=== PATIENT | female | born 1970 | race Caucasian/White ===

== ENCOUNTER 2017-02-03 12:32 | Emergency (ER) | payer OTHER ==
[~2017-02-03] VITALS: Ht 175.3 cm; Wt 86.8 kg
[~2017-02-03 12:32] MED LIST: ADVAIR HFA120 INHALA IH; AMBIEN10 M1 PO; AMBIEN10 MG PO; AMOXICILLIN500 MG PO; ASCORBIC ACID100 MG PO; ASCORBIC ACID500 M3 PO; ASPERDRINK81 MG PO; ASPIR 8181 M1 PO; ASPIRIN81 M2 PO; ATORVASTATIN CA10 MG PO; AUGMENTIN875 MG PO; BACTRIM DS PO; BACTRIM,SEPT1 TABLET PO; BACTROBAN NASAL1 G1 BOTH NARES; BENZTROPINE MESY2 MG PO; BISACODYL SUPP10 MG PR; Bactrim,Septra DS 80 PO; Bactroban Nasal Oint NS; CALCIUM500 M4 PO; CATAPRES0.2 MG PO; CATAPRES0.3 MG PO; CELEXA40 MG PO; CLARITIN10 M3 PO; CLARITIN10 MG PO; CLEOCIN300 MG PO; CLONAZEPAM1 MG PO; CLONIDINE HCL0.2 MG PO; CLONIDINE HCL0.3 MG PO; COGENTIN0.5 MG PO; COGENTIN2 MG PO; CRANBERRY200 MG PO; CRESTOR20 MG PO; CRESTOR40 MG PO; CYANOCOBALAM1000 MCG PO; CYCLOBENZAPRINE10 MG; DESYREL 150 MG150 MG PO; DESYREL100 MG PO; DIAZEPAM5 MG PO; DUONEB 2.5-0.5 M3 ML IH; ENDOCET 5-3251 EACH PO; ERYTHROMYC1 APPLICAT RIGHT EYE; FANAPT8 MG PO; FLEXERIL10 MG PO; GABAPENTIN600 MG PO; HUMALOG100 UNIT/1 SC; HUMALOG100 UNIT/2 SC; IBUPROFEN400 MG PO; INVEGA6 MG PO; KEFLEX500 MG PO; KEPPRA500 MG PO; LANTUS 10100 UNITS/ SC; LANTUS 3 M100 UNITS/ SC; LANTUS 3 M100 UNITS1 SC; LEVEMIR FL100 UNITS/ SC; LEVEMIR100 UNIT/2 SC; LEVOFLOXACIN750 MG PO; LEXAPRO20 MG PO; LISINOPRIL10 MG PO; LOPRESSOR25 MG PO; LOW DOSE ASPIRI81 M1 PO; LYRICA100 MG PO; LYRICA150 MG PO; METHADONE5 MG PO; METHadone HCl PO; MUPIROCIN22 GM TP; MYCOSTATIN 100,60 ML PO; NEURONTIN600 MG PO; NICODERM CQ1 EAC2 TD; NIX 5% CREAM60 GM TP; NOVOLOG 10100 UNITS/ SC; NOVOLOG PE100 UNITS/ SC; NYSTATIN15 GM TP; NovoLOG, HumaLOG SC; OMEPRAZOLE40 M1 PO; OXECTA7.5 MG PO; OXYBUTYNIN CHLOR5 MG PO; OXYCODONE-ACET1 EACH PO; OXYCONTIN15 MG PO; OXYCONTIN20 MG PO; PERCOCET 10/1 TABLET PO; PERCOCET 5/31 TABLET PO; PERCOCET 7.51 TABLET PO; POTASSIUM GLUCO90 MG PO; PREDNISONE10 MG PO; PRINIVIL10 MG PO; PROAIR HFA8.5 GM IH; PROVERA,CYCRIN10 MG PO; Percocet 10/325,Endo PO; RISPERDAL1 MG PO; SAPHRIS10 MG SL; SERTRALINE HCL100 MG PO; SYSTANE BALANCE10 ML BOTH EYES; SYSTANE GEL EYE10 ML BOTH EYES; TOPAMAX25 MG PO; TOPAMAX50 MG PO; TOPIRAMATE50 MG PO; VALIUM5 MG PO; VITAMIN D-32000 UNI1 PO; VITAMIN D1000 INTUN PO; XANAX0.5 MG PO; XANAX1 MG PO; ZOCOR20 MG PO; ZOLOFT100 MG PO; ZYVOX600 MG PO; Zocor PO
[2017-02-03 13:07] LABS: POINT-OF-CARE METER ID UU13113778
[2017-02-03 14:22] LABS: EOSINOPHIL (%) 1.7 % (0-5); EOSINOPHIL COUNT 0.2 K/uL (0-0.3); IMMATURE GRANULOCYTE (%) 0.3 % (0.0-0.7); INSTRUMENT ABS NEUTROPHIL CT 7.2 K/uL; MCHC 33.7 G/DL (30.0-36.0); MEAN PLAT.VOLUME 10.3 uM^3 (9.5-12.4); MONOCYTE (%) 6.2 % (3-12); MONOCYTE COUNT 0.7 K/uL (0-0.8); NEUTROPHIL (%) 64.7 % (45-76); NEUTROPHIL COUNT 7.2 K/uL (1.8-6.4); PLATELET COUNT 167 K/uL (156-360); RBC DIS.WIDTH-CV 12.3 % (11.8-14.6); RBC DIS.WIDTH-SD 38.6 % (39-53)
[2017-02-03 14:33] LABS: CHLORIDE 101 mEq/L (99-109); POTASSIUM 4.5 mEq/L (3.7-5.4); SODIUM 132 mEq/L (136-147)
[2017-02-03 14:36] LABS: ANION GAP 11 MEQ/L (2-14)
[2017-02-03 14:37] LABS: GLUCOSE 426 mg/dL (70-99)
[2017-02-03 14:38] LABS: GFR ESTIMATE (CALCULATED) > 59 mL/min/
[2017-02-03 14:39] LABS: UREA NITROGEN (BUN) 15 mg/dL (9-23)
[2017-02-03 15:46] LABS: POINT-OF-CARE METER ID UU14100415
[2017-02-03 16:43] LABS: POINT-OF-CARE METER ID UU14100415
[2017-02-03 16:58] VITALS: BP 123/79
== END 2017-02-03 16:59 | disposition home or self-care (01) ==
LOC: EME 12:32
PROVIDERS: Emergency Medicine
DX: E11.65 Type 2 diabetes mellitus with hyperglycemia (principal); T38.3X6A Underdosing of insulin and oral hypoglycemic [antidiabetic] drugs, initial encounter; Z91.128 Patient's intentional underdosing of medication regimen for other reason; Z79.4 Long term (current) use of insulin; I10 Essential (primary) hypertension; I25.2 Old myocardial infarction; J44.9 Chronic obstructive pulmonary disease, unspecified; F17.200 Nicotine dependence, unspecified, uncomplicated; Z86.73 Personal history of transient ischemic attack (TIA), and cerebral infarction without residual deficits; Z90.49 Acquired absence of other specified parts of digestive tract
CPT/HCPCS: 80048; 81003; 82948; 85025; 99281; 99285; J1815; J7030

== ENCOUNTER 2017-06-13 20:19 | Inpatient (IN) | payer OTHER ==
[~2017-06-13] VITALS: Ht 175.3 cm; Wt 79.1 kg
[2017-06-13 23:35] LABS: HEMATOCRIT 40.3 % (36.0-46.0); MCH 28.4 PG (29.0-34.0); MCV 83.4 FL (83-99); MEAN PLAT.VOLUME 10.3 uM^3 (9.5-12.4); PLATELET COUNT 227 K/uL (156-360); RBC DIS.WIDTH-CV 12.6 % (11.8-14.6); RBC DIS.WIDTH-SD 38.5 % (39-53); RED BLOOD COUNT 4.83 M/uL (3.80-5.20); WHITE BLOOD COUNT 12.8 K/uL (4.1-10.2)
[2017-06-13 23:46] LABS: CHLORIDE 99 mEq/L (99-109); POTASSIUM 3.7 mEq/L (3.7-5.4); SODIUM 131 mEq/L (136-147)
[2017-06-13 23:50] LABS: TOTAL BILIRUBIN 0.3 mg/dL (0.0-1.0)
[2017-06-13 23:52] LABS: GFR ESTIMATE (CALCULATED) > 59 mL/min/
[2017-06-13 23:53] LABS: UREA NITROGEN (BUN) 10 mg/dL (9-23)
[2017-06-14 00:08] LABS: ANION GAP 10 MEQ/L (2-14)
[2017-06-14 00:10] LABS: ALKALINE PHOSPHATASE 111 IU/L (3-129)
[2017-06-14 00:19] LABS: GLUCOSE 464 mg/dL (70-99)
[2017-06-14 01:06] LABS: ADD MIUA? YES; BILIRUBIN NEGATIVE; BLOOD SMALL; COLOR YELLOW ((YELLOW)); GLUCOSE (STRIP) >=500; KETONES NEGATIVE; LEUKOCYTES LARGE; NITRITE POSITIVE; PROTEIN (STRIP) NEGATIVE; SPECIFIC GRAVITY 1.033 (1.000-1.030); UROBILINOGEN 0.2 MG/DL (0.2-1.0)
[2017-06-14 01:20] LABS: RED BLOOD CELLS 0-5 /HPF (0-5)
[2017-06-14 01:21] LABS: WHITE BLOOD CELLS TNTC /HPF (0-5)
[2017-06-14 01:22] LABS: BACTERIA 3+ /HPF; CASTS NONE SEEN /LPF; CRYSTALS NONE SEEN; EPITHELIAL CELLS 1+ /HPF; MUCUS NONE SEEN /LPF; UCUL ADDED? YES
[2017-06-14 03:18] LABS: POINT-OF-CARE METER ID UU13113747
[2017-06-14] MEDS ORDERED: LYRICA100 MG PO (05:05)
[2017-06-14] MEDS ORDERED: PERCOCET 10/1 TABLET PO (05:05)
[2017-06-14] MEDS ORDERED: BUSPAR15 MG PO (05:06)
[2017-06-14 06:23] LABS: SAMPLE HEMOLYSIS CHECK 0; SAMPLE ICTERIC CHECK 0; SAMPLE LIPEMIA CHECK 0
[2017-06-14 06:36] VITALS: BP 126/64
[2017-06-14 06:55] LABS: POINT-OF-CARE METER ID UU13113774
[2017-06-14 08:17] LABS: METH RESISTANT S AUREUS PCR POSITIVE (NEGATIVE)
[2017-06-14 08:22] LABS: PROBE CHECK PASS; SPECIMEN PROCESSING CONTROL PASS
[2017-06-14 11:53] LABS: POINT-OF-CARE METER ID UU13113725
[2017-06-14] MEDS ORDERED: RISPERDAL3 MG PO (15:30)
[2017-06-14] MEDS ORDERED: PERPHENAZINE2 MG PO (15:32)
[2017-06-14 15:42] VITALS: BP 100/54
[2017-06-14 17:30] LABS: POINT-OF-CARE METER ID UU13113774
[2017-06-14 19:28] VITALS: BP 124/62
[2017-06-14 21:26] LABS: POINT-OF-CARE METER ID UU13113774
[2017-06-14 23:34] VITALS: BP 118/76
[2017-06-15 03:24] VITALS: BP 131/68
[2017-06-15 05:56] LABS: EOSINOPHIL (%) 0.6 % (0-5); EOSINOPHIL COUNT 0.1 K/uL (0-0.3); HEMATOCRIT 34.3 % (36.0-46.0); IMMATURE GRANULOCYTE (%) 0.4 % (0.0-0.7); IMMATURE GRANULOCYTE COUNT 0.1 K/uL; INSTRUMENT ABS NEUTROPHIL CT 9.1 K/uL; LYMPHOCYTE COUNT 4.2 K/uL (1.0-2.8); MCHC 35.3 G/DL (30.0-36.0); MCV 82.3 FL (83-99); MEAN PLAT.VOLUME 10.1 uM^3 (9.5-12.4); MONOCYTE (%) 5.5 % (3-12); MONOCYTE COUNT 0.8 K/uL (0-0.8); NEUTROPHIL (%) 63.8 % (45-76); NEUTROPHIL COUNT 9.1 K/uL (1.8-6.4); PLATELET COUNT 216 K/uL (156-360); RBC DIS.WIDTH-CV 12.5 % (11.8-14.6); RBC DIS.WIDTH-SD 37.8 % (39-53); RED BLOOD COUNT 4.17 M/uL (3.80-5.20); WHITE BLOOD COUNT 14.3 K/uL (4.1-10.2)
[2017-06-15 06:31] LABS: POINT-OF-CARE METER ID UU13113774
[2017-06-15 06:49] LABS: ANION GAP 7 MEQ/L (2-14); CHLORIDE 107 MEQ/L (99-109); GFR ESTIMATE (CALCULATED) > 59 mL/min/; GLUCOSE 268 mg/dL (70-99); POTASSIUM 4.1 MEQ/L (3.7-5.4); SAMPLE HEMOLYSIS CHECK 0; SAMPLE ICTERIC CHECK 0; SAMPLE LIPEMIA CHECK 0; SODIUM 137 MEQ/L (136-147); UREA NITROGEN (BUN) 15 mg/dL (9-23)
[2017-06-15 07:35] VITALS: BP 118/74
[2017-06-15 11:52] LABS: POINT-OF-CARE METER ID UU13113725
[2017-06-15 16:24] LABS: POINT-OF-CARE METER ID UU13113774
[2017-06-15 16:40] VITALS: BP 122/79
[2017-06-15 21:10] LABS: POINT-OF-CARE METER ID UU13113725
[2017-06-15 21:27] LABS: POINT-OF-CARE METER ID UU13113725
[2017-06-15 21:28] LABS: POINT-OF-CARE METER ID UU13113800
[2017-06-15 23:57] VITALS: BP 114/74
[2017-06-16 06:01] LABS: POINT-OF-CARE METER ID UU13113725
[2017-06-16 06:42] LABS: EOSINOPHIL (%) 2.4 % (0-5); EOSINOPHIL COUNT 0.2 K/uL (0-0.3); HEMATOCRIT 34.9 % (36.0-46.0); IMMATURE GRANULOCYTE (%) 0.8 % (0.0-0.7); IMMATURE GRANULOCYTE COUNT 0.1 K/uL; INSTRUMENT ABS NEUTROPHIL CT 4.2 K/uL; LYMPHOCYTE COUNT 3.9 K/uL (1.0-2.8); MCH 28.9 PG (29.0-34.0); MCHC 34.1 G/DL (30.0-36.0); MCV 84.7 FL (83-99); MEAN PLAT.VOLUME 10.1 uM^3 (9.5-12.4); MONOCYTE (%) 5.6 % (3-12); MONOCYTE COUNT 0.5 K/uL (0-0.8); NEUTROPHIL (%) 47.4 % (45-76); NEUTROPHIL COUNT 4.2 K/uL (1.8-6.4); PLATELET COUNT 227 K/uL (156-360); RBC DIS.WIDTH-CV 12.9 % (11.8-14.6); RBC DIS.WIDTH-SD 39.5 % (39-53); RED BLOOD COUNT 4.12 M/uL (3.80-5.20); WHITE BLOOD COUNT 8.9 K/uL (4.1-10.2)
[2017-06-16 07:05] LABS: ANION GAP 8 MEQ/L (2-14); CHLORIDE 106 MEQ/L (99-109); GFR ESTIMATE (CALCULATED) > 59 mL/min/; POTASSIUM 4.4 MEQ/L (3.7-5.4); SAMPLE HEMOLYSIS CHECK 0; SAMPLE ICTERIC CHECK 0; SAMPLE LIPEMIA CHECK 0; SODIUM 138 MEQ/L (136-147); UREA NITROGEN (BUN) 19 mg/dL (9-23)
[2017-06-16 07:06] LABS: GLUCOSE 77 mg/dL (70-99)
[2017-06-16 07:20] LABS: Estimated Average Glucose 326 mg/dL (70-123)
[2017-06-16 07:36] VITALS: BP 108/59
[2017-06-16 11:55] LABS: POINT-OF-CARE METER ID UU13113725
[2017-06-16 16:00] VITALS: BP 108/66
[2017-06-16 16:11] LABS: POINT-OF-CARE METER ID UU13113725
[2017-06-16 21:00] LABS: POINT-OF-CARE METER ID UU13113725
[2017-06-16 23:55] VITALS: BP 116/62
[2017-06-17 05:46] LABS: POINT-OF-CARE METER ID UU13113774
[2017-06-17 07:50] VITALS: BP 120/68
[2017-06-17] MEDS ORDERED: BACTRIM,SEPT1 TABLET PO (10:36)
[2017-06-17 12:02] LABS: POINT-OF-CARE METER ID UU13113725
== END 2017-06-17 15:28 | disposition home health service (06) | DRG 603 ==
LOC: EME 20:19 → EDOF 06-14 04:45 → 5EAST 06-14 04:45 → ENRESERV 06-14 04:50 → 5EAST 06-14 06:18
PROVIDERS: Hospitalist; Internal Medicine; Physician Assistant
PROC: 0H90XZZ Drainage of Scalp Skin, External Approach (ICD-10-PCS; 2017-06-14)
PROC: 0H90XZZ Drainage of Scalp Skin, External Approach (ICD-10-PCS; principal; 2017-06-16)
DX: L02.811 Cutaneous abscess of head [any part, except face] (principal); B95.62 Methicillin resistant Staphylococcus aureus infection as the cause of diseases classified elsewhere; B85.0 Pediculosis due to Pediculus humanus capitis; N39.0 Urinary tract infection, site not specified; B96.20 Unspecified Escherichia coli [E. coli] as the cause of diseases classified elsewhere; E11.65 Type 2 diabetes mellitus with hyperglycemia; E86.0 Dehydration; E87.1 Hypo-osmolality and hyponatremia; B37.0 Candidal stomatitis; J44.1 Chronic obstructive pulmonary disease with (acute) exacerbation; E11.42 Type 2 diabetes mellitus with diabetic polyneuropathy; D72.829 Elevated white blood cell count, unspecified; I10 Essential (primary) hypertension; L84 Corns and callosities; B35.1 Tinea unguium; G40.909 Epilepsy, unspecified, not intractable, without status epilepticus; I25.10 Atherosclerotic heart disease of native coronary artery without angina pectoris; E78.5 Hyperlipidemia, unspecified; G89.29 Other chronic pain; I25.2 Old myocardial infarction; R01.1 Cardiac murmur, unspecified; R00.0 Tachycardia, unspecified; R60.9 Edema, unspecified; F20.0 Paranoid schizophrenia; F32.9 Major depressive disorder, single episode, unspecified; F17.210 Nicotine dependence, cigarettes, uncomplicated; Z22.322 Carrier or suspected carrier of Methicillin resistant Staphylococcus aureus; Z80.3 Family history of malignant neoplasm of breast; Z83.3 Family history of diabetes mellitus; Z86.14 Personal history of Methicillin resistant Staphylococcus aureus infection; Z86.73 Personal history of transient ischemic attack (TIA), and cerebral infarction without residual deficits; Z91.19 Patient's noncompliance with other medical treatment and regimen
CPT/HCPCS: 70450; 71020; 80048; 80053; 80076; 80202; 81003; 82010; 82248; 82948; 83036; 83605; 85025; 85027; 87040; 87070; 87075; 87077; 87086; 87147; 87168; 87186; 87205; 87641; 94640; 94640 76; 99202; 99281; 99285; A6260; J0696; J1650; J1815; J1885; J2543; J2930; J3010; J3370; J7030; J7050